=== PATIENT | female | born 1980 | race Caucasian/White ===

== ENCOUNTER 2019-04-08 22:28 | Emergency (ER) | payer SELFPAY ==
[~2019-04-08] VITALS: Ht 160 cm; Wt 105.3 kg
[2019-04-08 22:40] VITALS: BP 125/73
--- NOTE | 2019-04-08 22:40 | NUR ---
TO BED # 04 AMBULATORY
--- NOTE | 2019-04-08 22:45 | NUR ---
PT HAS C/O 8/10 MID BACK PAIN X 1 WEEK. AAO X4. RESPIRATIONS ARE EVEN AND UNLABORED. SKIN IS WARM AND DRY TO TOUCH. DENIES COUGH. DENIES N/V/D. PT DENIES ANY TRAUMA OR INJURY TO BACK. PT TAKING TYLENOL AT HOME BUT INEFFECTIVE. MEDHX: NONE ALLERGIES: NKA
--- NOTE | 2019-04-08 23:02 | NUR ---
Dr. Sin examining patient.
[2019-04-08] MEDS ORDERED: KETOROLAC 30 MG/ML VIAL IM ONE (23:05)
--- NOTE | 2019-04-08 23:50 | NUR ---
PT PAIN LEVEL REDUCED FROM 8/10 TO 6/10 AFTER TRAMADOL IM WAS GIVEN. NADR. RESPIRATIONS ARE EVEN AND UNLABORED. SKIN IS WARM AND DRY TO TOUCH. PT RESTING UPRIGHT IN BED EYES OPEN. SON AT BEDSIDE.
[2019-04-09 00:02] VITALS: BP 125/73
--- NOTE | 2019-04-09 00:03 | NUR ---
Patient discharged with v/s stable. Written and verbal after care instructions given and explained. Patient verbalized understanding. Ambulatory with steady gait. All questions addressed prior to discharge. Advised to follow up with PMD.
== END 2019-04-09 00:03 | disposition home or self-care (01) ==
LOC: MED 22:28
DX: M54.6 Pain in thoracic spine (principal)
CPT/HCPCS: 96372; 99283; J1885